=== PATIENT | female | born 1960 | race Caucasian/White ===

== ENCOUNTER 2017-09-10 05:03 | Inpatient (IN) | payer BC ==
[~2017-09-10 05:03] MED LIST: Ketamine 500 MG/5 ML MDV IV ONE
[2017-09-10] MEDS ORDERED: Celecoxib 200 MG Cap PO ONE (05:33)
[2017-09-10] MEDS ORDERED: Gabapentin 300 MG Cap PO ONE (05:33)
[2017-09-10] MEDS ORDERED: Scopolamine 1.5 MG Transdermal Patch TOP ONE (05:35)
[2017-09-10] MEDS ORDERED: Dextrose 5%-Lactated Ringers 1,000 ML IV SCH (06:00)
[2017-09-10] MEDS ORDERED: Albuterol/Ipratropium 3.0-0.5 MG/3 ML Neb Soln NEB ONE (06:30)
[2017-09-10] MEDS ORDERED: Succinylcholine 200 MG/10 ML MDV ONE (07:06)
[2017-09-10] MEDS ORDERED: Dexamethasone 4 MG/ML SDV ONE (07:06)
[2017-09-10] MEDS ORDERED: Rocuronium 50 MG/5 ML Vial ONE (07:06)
[2017-09-10] MEDS ORDERED: Ondansetron 4 MG/2 ML SDV ONE (07:06)
[2017-09-10] MEDS ORDERED: Propofol 200 MG/20 ML SDV ONE (07:06)
[2017-09-10] MEDS ORDERED: Neostigmine Methylsulfate 1 MG/ML 5 ML Syringe ONE (07:06)
[2017-09-10] MEDS ORDERED: Glycopyrrolate 0.2 MG/ML 5 ML MDV ONE (07:06)
[2017-09-10] MEDS ORDERED: cefOXitin 2 GM Vial ONE (07:14)
[2017-09-10] MEDS ORDERED: cefOXitin 2 GM in Sodium Chloride 0.9% 100 ML IV ONE (07:15)
[2017-09-10] MEDS ORDERED: Lidocaine 2% 100 MG/5 ML Syringe IVPUSH ONE (07:15)
[2017-09-10] MEDS ORDERED: cefOXitin 2 GM in Sodium Chloride 0.9% 50 ML IV ONE (07:15)
[2017-09-10] MEDS ORDERED: Ketamine 500 MG/5 ML MDV IV ONE (07:15)
[2017-09-10] MEDS ORDERED: Ropivacaine 57 ML, Dexamethasone 8 MG, EPINEPHrine 0.4 MG, Sodium Chloride 0.9% 20.6 ML NERVRT ONE ×4 (07:15)
[2017-09-10] MEDS ORDERED: Labetalol 20 MG/4 ML Syringe ONE (07:57)
[2017-09-10] MEDS ORDERED: Lactated Ringers 1,000 ML ONE (08:38)
[2017-09-10] MEDS ORDERED: fentaNYL 100 MCG/2 ML SDV ONE (08:50)
[2017-09-10] MEDS ORDERED: CHECK SCOPOLAMINE PATCH DAILY SCH (09:00)
[2017-09-10] MEDS ORDERED: fentaNYL 100 MCG/2 ML SDV IVPUSH ONE (09:52)
[2017-09-10] MEDS ORDERED: Insulin Aspart 100 Units/ML 3 ML Pen SUBCUT ONE (10:00)
[2017-09-10] MEDS ORDERED: Insulin Detemir 100 Units/ML 3 ML Pen SUBCUT ONE (10:00)
[2017-09-10] MEDS: Lidocaine 0.4%/D5W 2 GM/500 ML BAG IV SCH ×2 (11:04→23:52)
[2017-09-10] MEDS ORDERED: Glucagon,Human Recombinant 1 MG Vial IM PRN (11:32)
[2017-09-10] MEDS ORDERED: 50% Dextrose in Water 50 ML Syringe IVPUSH PRN (11:33)
[2017-09-10] MEDS: Dextrose 5%-Lactated Ringers 1,000 ML IV SCH ×2 (11:36→23:52)
[2017-09-10] MEDS ORDERED: Metoclopramide 10 MG/2 ML SDV IVPUSH PRN (12:00)
[2017-09-10] MEDS ORDERED: Albuterol/Ipratropium 3.0-0.5 MG/3 ML Neb Soln INH PRN (12:00)
[2017-09-10] MEDS ORDERED: Ondansetron 4 MG/2 ML SDV IVPUSH PRN (12:00)
[2017-09-10] MEDS ORDERED: diphenhydrAMINE 50 MG/ML SDV IVPUSH PRN (12:00)
[2017-09-10] MEDS ORDERED: Labetalol 20 MG/4 ML Syringe IVPUSH PRN (12:00)
[2017-09-10] MEDS ORDERED: Pantoprazole 40 MG Vial IVPUSH SCH (12:30)
[2017-09-10] MEDS: cefOXitin 2 GM in Sodium Chloride 0.9% 50 ML IV SCH ×3 (13:06→23:52)
[2017-09-10] MEDS: Gabapentin 250 MG/5 ML Solution ML 470 ML Bottle PO SCH ×2 (14:08→20:56)
[2017-09-10] MEDS: Albuterol/Ipratropium 3.0-0.5 MG/3 ML Neb Soln INH SCH ×2 (15:56→20:56)
[2017-09-10] MEDS ORDERED: MVI, Adult with Vitamin K 10 ML, Thiamine 100 MG, Chromium/Copper/Mang/Selen/Zn 1 ML in... IV SCH ×4 (16:00)
[2017-09-10] MEDS: Insulin Aspart 100 Units/ML 3 ML Pen SUBCUT PRN ×2 (16:39→21:06)
[2017-09-10] MEDS: Heparin Sodium 5,000 Units/ML Vial SUBCUT SCH (17:34)
[2017-09-10] MEDS: Acetaminophen Soln 650 MG/20.3 ML UD Cup PO SCH ×2 (17:34→23:52)
[2017-09-11] MEDS ORDERED: Iohexol 647 MG/ML 50 ML SDV PO STA (03:29)
[2017-09-11] MEDS: Insulin Aspart 100 Units/ML 3 ML Pen SUBCUT PRN ×3 (04:39→17:15)
[2017-09-11] MEDS: cefOXitin 2 GM in Sodium Chloride 0.9% 50 ML IV SCH (06:14)
[2017-09-11] MEDS: Acetaminophen Soln 650 MG/20.3 ML UD Cup PO SCH ×3 (06:14→17:14)
[2017-09-11] MEDS: Heparin Sodium 5,000 Units/ML Vial SUBCUT SCH ×2 (06:14→17:14)
[2017-09-11] MEDS: Dextrose 5%-Lactated Ringers 1,000 ML IV SCH (06:19)
[2017-09-11] MEDS ORDERED: Ondansetron 4 MG Tab.DIS PO PRN (07:23)
[2017-09-11] MEDS ORDERED: ALPRAZolam 0.25 MG Tab PO PRN (07:24)
[2017-09-11] MEDS ORDERED: Lactated Ringers 1,000 ML IV SCH (07:30)
[2017-09-11] MEDS: Albuterol/Ipratropium 3.0-0.5 MG/3 ML Neb Soln INH SCH ×4 (08:16→21:19)
--- NOTE | 2017-09-11 08:29 | PN ---
DATE OF SERVICE: 09/10/2017 SUBJECTIVE: Lucrecia is postop day 1. Her upper GI was normal this morning. Pain has been controlled. JEREMIAH drain put out 20 mL of a light pink serosanguineous drainage. Blood sugar was 302 and 263. When it was 302, she did receive 9 units of NovoLog coverage. Yesterday in recovery, she had Lantus 20 units. Used just CPAP at night and has no questions or concerns this morning. OBJECTIVE: GENERAL: Lucrecia Richter is a 56-year-old female. VITAL SIGNS: T, P, R 99.4, 83, 18. Blood pressure 145/61. HEENT: Negative. NECK: Supple. HEART: Regular rate and rhythm. LUNGS: Clear. ABDOMEN: Dressings dry and intact. Abdominal binder is on. EXTREMITIES: Without peripheral edema. SCDs are on. ASSESSMENT: Laparoscopic gastric bypass surgery, liver biopsy, repair of diaphragmatic hernia, excision of mediastinal lipoma, and small-bowel resection for morbid obesity, marked hepatomegaly, diaphragmatic hernia, mediastinal lipoma, and immobile small bowel mesentery. Date of surgery, 09/10/2017. Surgeon, Darryl Art MD. PLAN: 1. Discontinue D5 LR. 2. Lactated Ringer's 100 mL/h. 3. Dressing off. October shower. 4. Step-2 with no cereal gastric bypass diet. 5. Start home medications: Alprazolam/Xanax 0.25 mg t.i.d. p.r.n. anxiety, furosemide/Lasix 20 mg daily, levothyroxine 50 mcg p.o. at breakfast, metoprolol tartrate 25 mg take 12.5 mg p.o. b.i.d., sertraline/Zoloft 100 mg p.o. daily, and spironolactone 50 mg p.o. daily. 6. Good pulmonary toilet. 7. We will continue to check blood sugars and to call after her 10 a.m. blood sugar. We will evaluate p.r.n. or in a.m. Mayi Neves PA-C /[id number]
[2017-09-11] MEDS: Levothyroxine 50 MCG Tab PO SCH (08:46)
[2017-09-11] MEDS: Furosemide 20 MG Tab PO SCH (08:46)
[2017-09-11] MEDS: Spironolactone 25 MG Tab PO SCH (08:47)
[2017-09-11] MEDS: Metoprolol Tartrate 25 MG Tab PO SCH ×2 (08:48→21:23)
[2017-09-11] MEDS: Celecoxib 200 MG Cap PO SCH (08:51)
[2017-09-11] MEDS: SCOPOLAMINE PATCH CHECK TOP SCH (08:51)
[2017-09-11] MEDS: Gabapentin 250 MG/5 ML Solution ML 470 ML Bottle PO SCH ×3 (08:53→21:29)
[2017-09-11] MEDS ORDERED: Sertraline 50 MG Tab PO SCH ×2 (09:00→21:00)
[2017-09-11] MEDS ORDERED: Non-Formulary Medication 1 Each (Sertraline [Zoloft] 100 MG) PO SCH (09:00)
[2017-09-11] MEDS ORDERED: Non-Formulary Medication 1 Each (Spironolactone [Aldactone] 50 MG) PO SCH (09:00)
--- NOTE | 2017-09-11 09:17 | CR ---
UGI wo KUB HISTORY: Evaluate Laure-en-Y COMPARISON: None FINDINGS: Contrast is seen within the gastric remnant. No extravasation. Surgical drain present. Cont rast flows down the proximal small bowel. No dilated small bowel loops or evidence for obstruction. Impression: Post Laure-en-Y without evidence for complication.
[2017-09-11] MEDS: Pantoprazole 40 MG Delayed-Release Granules 1 Packet PO SCH (11:58)
[2017-09-11] MEDS ORDERED: Insulin Detemir 100 Units/ML 3 ML Pen SUBCUT ONE (21:00)
[2017-09-12] MEDS: Acetaminophen Soln 650 MG/20.3 ML UD Cup PO SCH ×4 (01:09→13:08)
[2017-09-12] MEDS: Heparin Sodium 5,000 Units/ML Vial SUBCUT SCH (06:05)
[2017-09-12] MEDS: Albuterol/Ipratropium 3.0-0.5 MG/3 ML Neb Soln INH SCH ×2 (07:26→11:13)
[2017-09-12] MEDS: Levothyroxine 50 MCG Tab PO SCH (07:32)
[2017-09-12] MEDS: Celecoxib 200 MG Cap PO SCH (07:32)
[2017-09-12] MEDS: Metoprolol Tartrate 25 MG Tab PO SCH (08:04)
[2017-09-12] MEDS: Furosemide 20 MG Tab PO SCH (08:04)
[2017-09-12] MEDS: Spironolactone 25 MG Tab PO SCH (08:04)
[2017-09-12] MEDS: SCOPOLAMINE PATCH CHECK TOP SCH (08:05)
[2017-09-12] MEDS: Gabapentin 250 MG/5 ML Solution ML 470 ML Bottle PO SCH ×2 (08:07→13:09)
[2017-09-12] MEDS ORDERED: Cyanocobalamin (Vitamin B12) 1,000 MCG/ML SDV IM ONE (09:00)
--- NOTE | 2017-09-12 11:34 | DISCH ---
ADMISSION DIAGNOSES: Morbid obesity, BMI 46.5; diabetes type 2, use of insulin pump; sleep apnea, uses CPAP; joint pain, knees, hips, ankles; hypothyroidism; hypertension; hyperlipidemia; heartburn; history of hepatitis C; anxiety; liver disease; and stage IV cirrhosis. DISCHARGE DIAGNOSES: Laparoscopic gastric bypass surgery, liver biopsy, repair of diaphragmatic hernia, excision of mediastinal lipoma, and small bowel resection for morbid obesity, marked hepatomegaly, diaphragmatic hernia, mediastinal lipoma, and immobile small bowel mesentery. Date of surgery 09/10/2017. Surgeon, Dr. Darryl Art. HISTORY: Lucrecia Richter is a 56-year-old female with longstanding history of morbid obesity and increasing comorbidities. After preoperative evaluation and discussion of possible risks and possible complications, she wished to proceed with surgical procedure. HOSPITAL COURSE: Lucrecia had her surgery on 09/10/2017. She had no operative complications. On postop day #1, she was started on a step 2 gastric bypass diet with no cereal. Appropriate home medications were started, and she had coverage of Levemir for her blood sugars. Blood sugars were monitored, and on postop day #2, she was able to be discharged to home. She had no pain. Activity was good. Vital signs were stable. Blood sugar was 162. She received adequate dietary instruction and postoperative instructions. She was able to be discharged to home. PHYSICAL EXAMINATION: GENERAL: Lucrecia is a 56-year-old female. VITAL SIGNS: Height is 5 feet 2 inches and weight is 254 pounds. VITAL SIGNS: TPR 97.7, 85, 16, blood pressure 137/64. HEENT: Negative. NECK: Supple. HEART: Regular rate and rhythm. LUNGS: Clear. ABDOMEN: Incisions look good. 4 x 4 over JEREMIAH drain. Abdominal binder is on. EXTREMITIES: Without peripheral edema. DISPOSITION: Discharged to home. CONDITION: Stable and improving. FOLLOWUP APPOINTMENT: Mayi Neves PA-C on 09/20/2017 at 10:00 a.m. HOME MEDICATIONS: 1. Tylenol 650 mg q.6 hours, liquid or chewable. 2. Celebrex 200 mg p.o. daily, #14. 3. Levemir 20 units subcu daily. 4. Zofran ODT 4 mg q.4 hours p.r.n. nausea. 5. Resume home medications: Xanax 0.25 mg oral 3 times a day p.r.n. anxiety, Lasix 20 mg daily, Synthroid 50 mcg oral before breakfast, metoprolol tartrate 12.5 mg oral twice daily, Zoloft 100 mg oral daily, Aldactone 50 mg oral daily, Lipitor 20 mg oral at bedtime. 6. Stop taking: Vitamin D3, B12, NovoLog, multivitamin, omega-3, omeprazole. DIET AFTER DISCHARGE: Step 2 gastric bypass diet with no cereals. Drink 8 to 10 glasses of water a day. ACTIVITY: No lifting greater than 10 pounds for 2 weeks. Driving: Do not drive for 1 week. May shower. Notify provider if any fever, increased pain, nausea, or vomiting. Keep site clean and dry. Wear abdominal binder for 2 weeks. SPECIAL INSTRUCTIONS: Use incentive spirometer 10 times every hour while awake for 1 week. Check blood sugars 3 times a day and if you are symptomatic, check first thing in the morning, afternoon, and 2 hours after evening meal. Call with blood sugar results daily. Keep an accurate protein and fluid record of the intake.
[2017-09-12] MEDS: Pantoprazole 40 MG Delayed-Release Granules 1 Packet PO SCH (13:12)
[2017-09-12] MEDS ORDERED: Insulin Detemir 100 Units/ML 3 ML Pen SUBCUT ONE (21:00)
--- NOTE | 2017-09-17 08:44 | OR ---
DATE OF PROCEDURE: 09/10/2017 PREOPERATIVE DIAGNOSIS: Morbid obesity. POSTOPERATIVE DIAGNOSES: 1. Morbid obesity. 2. Marked hepatomegaly. 3. Paraesophageal diaphragmatic hernia associated with mediastinal lipoma. 4. Poor mobility of the small bowel secondary to marked fatty infiltration of small bowel mesentery. OPERATIVE PROCEDURES: 1. Laparoscopic Laure-en-Y gastric bypass with long-limb gastroenterostomy (86059). 2. Ananth-Cut needle liver biopsy (83545). 3. Repair of paraesophageal diaphragmatic hernia (76022). 4. Excision of mediastinal lipoma (73729). 5. Small bowel resection to facilitate mobility of the jejunojejunostomy allowing relatively tension-free gastrojejunostomy (78410). ANESTHESIA: General. ASSISTANTS: Mayi Neves PA-C, and DENICE Craig. INDICATIONS FOR PROCEDURE: This 56-year-old female presents with longstanding morbid obesity and increasingly significant comorbidities. After preoperative evaluation and discussion, she wished to proceed with a gastric bypass procedure. Potential risks including bleeding, infection, leaks from various GI tract closures, problems with bowel obstruction over time, as well as possibility of cardiopulmonary, septic, or hemorrhagic complications leading to were discussed, and the patient wishes to proceed. DETAILS OF PROCEDURE: The patient was taken to the operating room and placed in a supine position. After general endotracheal anesthesia was induced, she was converted to a lithotomy position and an orogastric tube was placed, along with the abdomen being prepped and draped. At 15 cm inferior and 5 cm left of xiphoid process, a transverse incision was made. The peritoneal cavity entered under direct vision with Optiview trocar, followed by inflation of the peritoneal cavity to 15 mmHg with CO2. Laparoscope was reinserted. No underlying trocar insertion site injuries were seen. Following this, bilateral subcostal transverse abdominis plane blocks were placed with direct visualization of the needle tip in the transverse abdominis plane, and injection with standard solution bilaterally. Following this, 5 additional trocars were placed across the upper and mid abdomen. General exploration was undertaken. The patient was initially noted to have a large amount of fatty infiltration involving the liver. Ananth-Cut needle biopsy was obtained from the left lobe of the liver. Minimal bleeding from the biopsy sites was controlled with electrocautery. Attention was then taken to the formation of jejunojejunostomy. The omentum was divided in the midline up to the level of the transverse colon. Small bowel was then traced out 200 cm distal to that point where it was divided. Small bowel was noted to be excessively immobile due to extreme amount of fat within the small bowel mesentery. Given this, we elected to resect roughly 10 cm of the biliopancreatic limb at this point, which would facilitate mobility of the jejunojejunostomy, allowing formation of gastrojejunostomy with less tension. The mesentery underlying this biliopancreatic limb of the small bowel was then divided with Harmonic scalpel and the small bowel was then divided with a BUCK stapler once again and that specimen delivered through the left lateral trocar site. At this point, the small bowel was then traced out 150 cm distal to that point where it was anastomosed to the new end of the biliopancreatic limb. This was done in a [id number] manner with the Endo-BUCK 60 mm stapler and the 60 mm stapler was also used to close the transverse opening. Angles then anastomosed and mesenteric defect was then approximated with some 0 Ethibond stitch, along with fibrin sealant. The small bowel was then brought up in antecolic-antegastric approach, and this did come up to the area of the gastrojejunostomy with relatively minimal tension at this point. The liver was then retracted anteriorly. The patient was noted to have a moderate-sized paraesophageal diaphragmatic hernia. This was reduced. It contained some perigastric fat, along with fundus of stomach, and a little tongue of omentum. As this was reduced and the peritoneum incised and reflected downward, the patient was noted to have a mediastinal lipoma roughly the size of a ping-pong ball present. This was excised and sent as a separate specimen. The diaphragmatic hernia was then repaired anteriorly with a series of 0 Ethibond sutures reinforced with PTFE pledgets. The gastrointestinal balloon catheter was then inflated to 15 mL and pulled up snugly against the EG junction. Gastric wall over the apex balloon was then marked with electrocautery, and balloon catheter deflated and pulled up from the esophagus. The lesser omental tissue adjacent to gastric cardia was then incised, allowing dissection behind the stomach at that level. Pouch formation was initiated with the BUCK stapler at the level of the cauterized kat at the point of cauterization of the gastric cardia. Pouch was then completed with additional firings of BUCK staplers up to and through the angle of His. Upon completion of the pouch, both staple lines were noted to be intact. The anvil of a 25-mm EEA stapler was then attached to a [place] sump-type tube. The latter was brought down through the mouth and taken out through a small opening in the gastric pouch, allowing the anvil likewise to be placed within the gastric pouch. The divided end of the Laure limb was then opened and the main body of the EEA stapler passed several centimeters into the lumen of the small bowel, brought up the anvil and united with it, thus creating the gastrojejunostomy. Upon removal of the stapler, double donuts of mucosa were noted within it. The small bowel was closed off with a vascular staple line. Gastrojejunostomy was then reinforced with some 3-0 Vicryl seromuscular stitch, along with a fibrin sealant. A leak test was accomplished with injection of 120 mL of air in the gastric pouch while submerged in the cefoxitin-containing saline solution. No leaks were identified. A single Jose-Gorman drain was then placed through the lateral trocar site and positioned adjacent to the gastrojejunostomy and from there up into the area of the splenic fossa. The trocars were then sequentially removed. The peritoneal cavity was deflated. The incisions were closed at skin level with 4-0 Vicryl stitch and the drain also affixed with 4-0 Vicryl stitch. The patient was taken to the recovery room in satisfactory condition. Physician scheduling assistant, Mayi Neves, played an essential role in assisting in this case, helping to position the patient, retract structures as needed, as well as suturing and cutting sutures when indicated. Her presence improved patient's safety and decreased the operative time. Darryl Art MD /[id number]
== END 2017-09-12 14:30 | disposition home or self-care (01) | DRG 403 ==
LOC: JP.SDS 05:03 → EDSTATUS 07:30 → JP.MS 07:30 → JP.2SS 09:45 → JP.MS 09-11 07:50 → JP.2SS 09-11 07:56
PROVIDERS: ADMIT Surgery; ATTEND Surgery
PROC: 0D164ZA Bypass Stomach to Jejunum, Percutaneous Endoscopic Approach (ICD-10-PCS; principal; 2017-09-10)
PROC: 0WBC4ZX Excision of Mediastinum, Percutaneous Endoscopic Approach, Diagnostic (ICD-10-PCS; 2017-09-10)
PROC: 3E0T3BZ Introduction of Anesthetic Agent into Peripheral Nerves and Plexi, Percutaneous Approach (ICD-10-PCS; 2017-09-10)
PROC: 0FB24ZX Excision of Left Lobe Liver, Percutaneous Endoscopic Approach, Diagnostic (ICD-10-PCS; 2017-09-10)
PROC: 0BQT4ZZ Repair Diaphragm, Percutaneous Endoscopic Approach (ICD-10-PCS; 2017-09-10)
PROC: 0DB94ZX Excision of Duodenum, Percutaneous Endoscopic Approach, Diagnostic (ICD-10-PCS; 2017-09-10)
DX: E66.01 Morbid (severe) obesity due to excess calories (principal); Z68.42 Body mass index [BMI] 45.0-49.9, adult; E78.5 Hyperlipidemia, unspecified; E11.9 Type 2 diabetes mellitus without complications; Z96.41 Presence of insulin pump (external) (internal); E03.9 Hypothyroidism, unspecified; I10 Essential (primary) hypertension; B19.20 Unspecified viral hepatitis C without hepatic coma; K74.60 Unspecified cirrhosis of liver; R16.0 Hepatomegaly, not elsewhere classified; K44.9 Diaphragmatic hernia without obstruction or gangrene; D17.4 Benign lipomatous neoplasm of intrathoracic organs; K76.0 Fatty (change of) liver, not elsewhere classified; K59.8 Other specified functional intestinal disorders; G47.30 Sleep apnea, unspecified; Z79.4 Long term (current) use of insulin
CPT/HCPCS: 36415; 74240; 74240-26; 80053; 82962; 83036; 83735; 84100; 85027; 86850; 86900; 86901; 88304; 88307; 88313; 94640; 94762; A9270-GY; C9113; J0171; J0330; J0694; J1100; J1644; J2001; J2405; J2704; J2710; J2795; J3010; J3411; J3420; J7030; J7042; J7050; J7120; J7620; Q9967